=== PATIENT | female | born 1990 | race Caucasian/White ===

== ENCOUNTER 2020-04-06 08:24 | Emergency (ER) | payer SELFPAY ==
--- NOTE | ~2020-04-06 | XR_ITS ---
EXAMINATION: XR chest 2V DATE: 04/06/2020 09:49 INDICATION: Chest pain TECHNIQUE: PA and lateral views of the chest are obtained. COMPARISON: None available FINDINGS: The lungs are free of acute opacities. There is no pleural effusion or pneumothorax. The ca rdiomediastinal silhouette is normal. The visualized bones and soft tissues are unremarkable. IMPRESSION: 1. No acute cardiopulmonary abnormality. Reviewed, dictated and finalized at location A.
--- NOTE | ~2020-04-06 | CT_ITS ---
EXAMINATION: CT abdomen pelvis w con INDICATION: Abdominal pain and vomiting TECHNIQUE: Computed tomographic images of the abdomen and pelvis were obtained after the administrati on of 100 cc of Omnipaque 350 intravenous contrast. The dose-length product (DLP) was 1610.65 mGy-cm. Automated exposure control and iterative reconstruction technique were employed. COMPARISON: None available FINDINGS: Minimal dependent atelectasis is present in the lung bases. The heart size is normal. The l iver, spleen, pancreas, gallbladder, and adrenal glands are normal. The kidneys are unremarkable. No pathologically enlarged abdominal or pelvic lymph nodes are identified. There is no free intraperiton eal gas or evidence of bowel obstruction. The appendix is normal. A tiny fat-containing umbilical her vernon is noted. IMPRESSION: 1. No CT correlate for the patient's symptoms. Reviewed, dictated and finalized at location A.
--- NOTE | 2020-04-06 08:36 | ED.ABDPAIN ---
HPI - Abdominal Pain General Chief Complaint: Abdominal Pain Stated Complaint: abdominal pain Time Seen by Provider: 04/06/20 08:36 Source: patient and family Mode of arrival: ambulatory Limitations: no limitations History of Present Illness HPI narrative: Patient is a 30-year-old female with a history of anxiety who presents for evaluation of abdominal pain and chest pain. Patient reports pain began approximately 3 in the morning and awaken her from sleep. She reports a severe, sharp pain in her chest and upper abdomen. It does radiate to the back. She has had associated nausea without vomiting. Patient has a history of anxiety and has been hyperventilating all morning per her mother who is at bedside and helps provide the history. Per mom, patient has no other formally diagnosed medical conditions. Patient motions to pain throughout her abdomen. She denies any diarrhea or constipation. Related Data Allergies Allergy/AdvReac Type Severity Reaction Status Date / Time No Known Allergies Allergy Verified 04/06/20 08:55 Review of Systems Review of Systems: Narrative: CONSTITUTIONAL: Denies fever, chills ENT: Denies rhinorrhea, congestion, sore throat, or otalgia. CARDIOVASCULAR: Reports chest pain without palpitations or edema RESPIRATORY: Denies cough or dyspnea. GASTROINTESTINAL: Reports abdominal pain, nausea, denies diarrhea GENITOURINARY: Denies dysuria or hematuria. SKIN: Denies rash or itching. MUSCULOSKELETAL: Reports pain radiates to her back, joint pain, or myalgia. NEUROLOGIC: Denies headache, numbness, or weakness. PSYCHIATRIC: Reports anxiety PMFSH Past Medical History Medical History (Updated 04/06/20 @ 11:32 by Flower Duong MD) No pertinent past medical history Social History Social History (Updated 04/06/20 @ 09:05 by Flower Duong MD) Smoking status: Never smoker Alcohol intake: never Substance use: never Living arrangements: with family Gender identity (if verbalized by the patient): Female Exam Narrative: Exam Narrative: GENERAL: Awake, alert, conversant, anxious appearing, hyperventilating HEAD: Normocephalic, atraumatic. EYES: PERRLA and EOMI. ENT: Nares clear, no rhinorrhea or epistaxis. Mucous membranes moist. NECK: Supple. CHEST: Hyperventilating in room, lungs are clear to auscultation bilaterally no wheezing HEART: Regular rate, sinus rhythm ABDOMEN:Non distended, tender throughout, no guarding, nonrigid EXTREMITIES: Normal range of motion. No edema. SKIN: Pale, warm, dry, excoriations to bilateral forearms NEURO:No focal deficits. Alert and oriented x3 Course Vital Signs Vital signs: Vital Signs Temperature 37.1 C 04/06/20 08:49 Pulse Rate 86 04/06/20 08:49 Respiratory Rate 20 04/06/20 08:49 Blood Pressure 136/92 H 04/06/20 08:49 Pulse Oximetry 100 04/06/20 08:49 Temperature 37.1 C 04/06/20 08:49 Pulse Rate 83 04/06/20 10:46 Respiratory Rate 20 04/06/20 10:46 Blood Pressure 136/92 H 04/06/20 08:49 Pulse Oximetry 100 04/06/20 10:46 MDM - Abdominal Pain MDM Narrative Medical decision making narrative: Patient's abdomen is soft without significant pain or signs of surgical abdomen on serial exams. Lab and imaging evaluations are reviewed and patient is felt to be a reasonable candidate for outpatient management. Patient was instructed as to limitations of imaging and lab evaluation and encouraged to return to the emergency department her primary physician for repeat exam in 12 hours if continued or worsening pain. Differential Diagnosis Differential diagnosis: Likely abdominal pain, acute appendicitis, constipation, diverticulitis, pancreatitis and small bowel obstruction Lab Data Attestation: I reviewed the patient's lab results. Result diagrams: 04/06/20 09:10 04/06/20 09:10 Labs: Lab Results 04/06/20 04/06/20 04/06/20 Range/Units 09:10 09:10 09:10 WBC 9.1 (4.5-10.0) K/mm3 RBC 5.31
[2020-04-06 08:49] VITALS: BP 136/92; PULSE 86; RESP 20; TEMP 37.1; O2SAT 100
--- NOTE | 2020-04-06 09:02 | ECG_ITS ---
Measurements Intervals [place] Rate: 91 P: 19 NE: 140 QRS: 12 QRSD: 92 T: 15 QT: 353 QTc: 435 Interpretive Statements SINUS RHYTHM NORMAL ECG Electronically Signed On 04-06-2020 13:00:19 CDT by Payam Azul D.O.
[2020-04-06 09:21] LABS: Basophils Absolute Auto 0.1 K/mm3 (0.0-0.1); Basophils Percent Auto 0.5 % (0.2-1.2); Eosinophils Percent Auto 0.3 % (0-4.4); Hemoglobin 15.1 g/dL (12.0-15.0); Immature Granulocyte Absolute 0.03 K/mm3 (0.00-0.031); Immature Granulocyte Percent A 0.3 % (0-0.5); Lymphocytes Absolute Auto 1.44 K/mm3 (0.9-3.2); Lymphocytes Percent Auto 15.8 % (18.3-44.2); Mean Corpuscular HGB Conc 33.6 g/dl (32-36); Mean Corpuscular Hemoglobin 28.4 pg (26-34); Mean Corpuscular Volume 84.7 fl (80-100); Mean Platelet Volume 9.3 fl (7.4-10.4); Monocytes Absolute Auto 0.5 K/mm3 (0.1-0.6); Monocytes Percent Auto 5.1 % (2.6-8.5); Neutrophils Absolute Auto 7.1 K/mm3 (1.3-6.7); Platelet Count Result 321 k/mm3 (150-375); Red Blood Count 5.31 M/mm3 (4.2-5.4); Red Cell Distribution Width 12.7 % (11.5-14.5); White Blood Count 9.1 K/mm3 (4.5-10.0)
[2020-04-06] MEDS: SODIUM CHLORIDE 0.9% IV 1,000 ML 999 ML IV CONT (09:28)
[2020-04-06] MEDS: ONDANSETRON INJ 4 MG/2 ML VIAL IV PUSH (09:29)
[2020-04-06] MEDS: MORPHINE SULFATE 4 MG/ML INJ IV PUSH (09:29)
[2020-04-06 09:32] LABS: Add Urine Microscopic? YES; Appearance Urine Clear (Clear); Bacteria Urine Trace /hpf; Bilirubin Urine Negative (Negative); Blood Urine Negative (Negative); Color Urine Yellow (Yellow); Glucose Urine UA Negative (Negative); INR 1.1; Ketones Urine Negative (Negative); Leukocyte Esterase Ur Negative LEU/UL (Negative); Mucus Urine Heavy /lpf; Nitrate Urine Negative (Negative); Protein Urine 2+ mg/dL (Negative); Prothrombin Time 13.4 Seconds (11.1-14.7); Specific Grav Ur 1.028 (1.001-1.035); Squamous Epithelial Cell Urine Many /hpf (Few); WBC Urine 0-3 /hpf
[2020-04-06 09:33] LABS: Alanine Aminotransferase 25 U/L (4-35); Albumin Level 4.6 g/dL (3.5-5.1); Alkaline Phosphatase 129 U/L (38-126); Anion Gap 11 mmol/L (8-16); Aspartate Amino Transferase 21 U/L (14-36); Bilirubin,Total 0.3 mg/dL (0.2-1.3); Blood Urea Nitrogen 10 mg/dL (7-17); Calcium 9.5 mg/dL (8.4-10.2); Carbon Dioxide 24 mmol/L (22-30); Chloride 104 mmol/L (98-107); Estimated CRCL calculation 104 ml/min; Estimated Glomerular Filt Rate > 60; Glucose 133 mg/dL (65-105); Sodium 139 mmol/L (137-145)
[2020-04-06 09:40] VITALS: BP 147/86; PULSE 76; RESP 20; O2SAT 99
[2020-04-06 09:43] LABS: Lipase 48 U/L (23-300)
[2020-04-06 09:46] LABS: Troponin I < 0.012 ng/mL (0.000-0.034)
[2020-04-06 10:46] VITALS: PULSE 83; RESP 20; O2SAT 100
[2020-04-06 11:56] VITALS: BP 165/89; PULSE 75; RESP 20; O2SAT 100
== END 2020-04-06 12:01 | disposition home or self-care (01) ==
PROVIDERS: Emergency Provider Emergency Medicine
DX: R10.84 Generalized abdominal pain (principal)
CPT/HCPCS: 36415; 71046; 74177; 80053; 81001; 81025; 83690; 84484; 85025; 85610; 85730; 93005; 96361; 96374; 96375; 99284; J0131; J2270; J2405; J7030; Q9967